=== PATIENT | female | born 1990 | race Two or more races ===

== ENCOUNTER 2020-02-23 14:26 | Emergency (ER) | payer MEDICAID ==
[~2020-02-23] VITALS: Ht 157.5 cm; Wt 74.8 kg
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
[2020-02-23] MEDS ORDERED: HYDROCODONE/APAP 5/325MG TABLET ONE (15:45)
[2020-02-23] MEDS: HYDROCODONE/APAP 5/325MG TABLET PO ONE (15:48)
[2020-02-23] MEDS ORDERED: SILVER SULFADIAZINE 50 GM JAR TP PRN (16:00)
[2020-02-23] MEDS ORDERED: SILVER SULFADIAZINE CREAM 25 GM TUBE ONE (16:06)
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
[2020-02-23 16:47] VITALS: BP 108/85
== END 2020-02-23 16:48 | disposition home or self-care (01) ==
LOC: ER 14:31
DX: T59.891A Toxic effect of other specified gases, fumes and vapors, accidental (unintentional), initial encounter (principal); T24.601A Corrosion of second degree of unspecified site of right lower limb, except ankle and foot, initial encounter; T21.65XA Corrosion of second degree of buttock, initial encounter; T31.0 Burns involving less than 10% of body surface; R00.0 Tachycardia, unspecified; W01.0XXA Fall on same level from slipping, tripping and stumbling without subsequent striking against object, initial encounter; Y93.89 Activity, other specified; Y92.89 Other specified places as the place of occurrence of the external cause; Y99.8 Other external cause status
CPT/HCPCS: 16020; 99283; A6403